=== PATIENT | female | born 1995 | race Caucasian/White ===

== ENCOUNTER 2016-05-03 18:10 | Emergency (ER) | payer OTHER ==
[~2016-05-03] VITALS: Ht 157.5 cm; Wt 69.7 kg
[~2016-05-03 18:10] MED LIST: HYDROXYZINE PAM25 MG PO
[2016-05-03 19:36] LABS: ADD MIUA? NO; BILIRUBIN NEGATIVE; BLOOD NEGATIVE; COLOR YELLOW ((YELLOW)); GLUCOSE (STRIP) NEGATIVE; KETONES NEGATIVE; LEUKOCYTES NEGATIVE; NITRITE NEGATIVE; PH, URINE 7.5 (5-8); PROTEIN (STRIP) NEGATIVE; SPECIFIC GRAVITY 1.017 (1.000-1.030); UCUL ADDED? NO; UROBILINOGEN 0.2 MG/DL (0.2-1.0)
[2016-05-03 20:12] LABS: CHLORIDE 106 mEq/L (99-109); SODIUM 138 mEq/L (136-147)
[2016-05-03 20:14] LABS: GLUCOSE 89 mg/dL (70-99)
[2016-05-03 20:15] LABS: ANION GAP 8 MEQ/L (2-14)
[2016-05-03 20:16] LABS: TOTAL BILIRUBIN 0.4 mg/dL (0.0-1.0)
[2016-05-03 20:18] LABS: ALKALINE PHOSPHATASE 92 IU/L (3-129); GFR ESTIMATE (CALCULATED) > 59 mL/min/
[2016-05-03 20:19] LABS: UREA NITROGEN (BUN) 8 mg/dL (9-23)
[2016-05-03 20:20] LABS: HEMATOCRIT 48.3 % (36.0-46.0); HEMATOLOGY COMMENT 1 SMEAR COMPATIBLE; MCH 28.4 PG (29.0-34.0); MCHC 34.8 G/DL (30.0-36.0); MCV 81.6 FL (83-99); PLATELET COUNT 300 K/uL (156-360); RBC DIS.WIDTH-CV 16.6 % (11.8-14.6); RBC DIS.WIDTH-SD 47.7 % (39-53); RED BLOOD COUNT 5.92 M/uL (3.80-5.20); WHITE BLOOD COUNT 6.6 K/uL (4.1-10.2)
[2016-05-03 20:21] LABS: LIPASE 15 U/L (1.0-51.0)
[2016-05-03 20:27] LABS: QUANTITATIVE HCG < 4.0 MIU/ML
[2016-05-03] MEDS ORDERED: BENTYL10 MG PO (22:37)
[2016-05-03] MEDS ORDERED: ZANTAC150 MG PO (22:37)
[2016-05-03 22:47] VITALS: BP 124/87
== END 2016-05-03 22:48 | disposition home or self-care (01) ==
LOC: EME 18:10
PROVIDERS: Physician Assistant
DX: K92.2 Gastrointestinal hemorrhage, unspecified (principal); R10.10 Upper abdominal pain, unspecified; F17.200 Nicotine dependence, unspecified, uncomplicated
CPT/HCPCS: 74177; 80053; 81003; 83690; 84702; 85027; 99281; 99284

== ENCOUNTER 2017-03-07 11:38 | Emergency (ER) | payer OTHER ==
[~2017-03-07] VITALS: Ht 160 cm; Wt 77.2 kg
[~2017-03-07 11:38] MED LIST changes: +BENTYL10 MG PO; +ZANTAC150 MG PO
[2017-03-07 12:32] LABS: ADD MIUA? NO; BILIRUBIN NEGATIVE; BLOOD NEGATIVE; COLOR YELLOW ((YELLOW)); GLUCOSE (STRIP) NEGATIVE; KETONES NEGATIVE; LEUKOCYTES NEGATIVE; NITRITE NEGATIVE; PROTEIN (STRIP) NEGATIVE; SPECIFIC GRAVITY 1.016 (1.000-1.030); UCUL ADDED? NO; UROBILINOGEN 0.2 MG/DL (0.2-1.0)
[2017-03-07 12:35] LABS: HEMATOCRIT 44.3 % (36.0-46.0); MCH 30.4 PG (29.0-34.0); MCHC 33.9 G/DL (30.0-36.0); MCV 89.7 FL (83-99); MEAN PLAT.VOLUME 10.7 uM^3 (9.5-12.4); PLATELET COUNT 194 K/uL (156-360); RBC DIS.WIDTH-CV 13.8 % (11.8-14.6); RBC DIS.WIDTH-SD 44.9 % (39-53); RED BLOOD COUNT 4.94 M/uL (3.80-5.20); WHITE BLOOD COUNT 6.5 K/uL (4.1-10.2)
[2017-03-07 12:43] LABS: CHLORIDE 107 mEq/L (99-109); SODIUM 142 mEq/L (136-147)
[2017-03-07 12:45] LABS: GLUCOSE 79 mg/dL (70-99)
[2017-03-07 12:46] LABS: ANION GAP 9 MEQ/L (2-14)
[2017-03-07 12:47] LABS: TOTAL BILIRUBIN 0.5 mg/dL (0.0-1.0)
[2017-03-07 12:49] LABS: ALKALINE PHOSPHATASE 86 IU/L (3-129); GFR ESTIMATE (CALCULATED) > 59 mL/min/
[2017-03-07 12:50] LABS: UREA NITROGEN (BUN) 6 mg/dL (9-23)
[2017-03-07 13:01] LABS: QUANTITATIVE HCG < 4.0 MIU/ML
[2017-03-07 14:35] LABS: LIPASE 10 U/L (1.0-51.0)
[2017-03-07 15:01] VITALS: BP 132/70
== END 2017-03-07 15:02 | disposition home or self-care (01) ==
LOC: EME 11:38
DX: K29.20 Alcoholic gastritis without bleeding (principal); F31.9 Bipolar disorder, unspecified; F41.9 Anxiety disorder, unspecified; F32.9 Major depressive disorder, single episode, unspecified; Z88.0 Allergy status to penicillin; Z88.1 Allergy status to other antibiotic agents; F17.200 Nicotine dependence, unspecified, uncomplicated
CPT/HCPCS: 80053; 81003; 83690; 84702; 85027; 99281; 99283